=== PATIENT | female | born 1965 | race Caucasian/White ===

== ENCOUNTER 2017-06-01 10:35 | Emergency (ER) | payer SELFPAY ==
--- NOTE | 2017-06-01 11:06 | EDM.PDOC ---
[id number] Chief Complaint: Neck Problem Stated Complaint: NECK HURTS Time Seen by Provider: 06/01/17 10:38 - Related Data Allergies Allergy/AdvReac Type Severity Reaction Status Date / Time Penicillins Allergy Swelling Verified 12/30/15 10:55 Home Meds: Home Meds . [No Known Home Meds] 12/30/15 [History] Course - Vital Signs Last Recorded V/S: Last Vital Signs Temp 35.8 C 06/01/17 10:48 Pulse 106 H 06/01/17 10:48 Resp 18 06/01/17 10:48 BP 196/115 H 06/01/17 10:48 Pulse Ox 98 06/01/17 10:48 - Orders/Labs/Meds Orders: Active Orders 24 hr Category Date Time Status Cervical Spine Comp w wo Cont [MR] Stat Exams 06/01/17 11:16 Taken Labs: Laboratory Tests 06/01/17 Range/Units 11:20 Sodium 136 (136-146) mmol/L Potassium 3.9 (3.5-5.1) mmol/L Chloride 106 (98-110) mmol/L Carbon Dioxide 17 L (21-31) mmol/L BUN 14 (6.0-23.0) mg/dL Creatinine 0.8 (0.6-1.5) mg/dL Est Cr Clr Drug Dosing 59.76 mL/min Estimated GFR (MDRD) > 60.0 ml/min Glucose 120 H (60-110) mg/dL Calcium 10.0 (8.8-10.8) mg/dL Meds: Medications Discontinued Medications Generic Name Dose Route Start Last Admin Trade Name Ricoq PRN Reason Stop Dose Admin Lorazepam 1 mg 06/01/17 11:40 06/01/17 11:45 Ativan IVPUSH 06/01/17 11:41 1 mg ONETIME ONE Administration Departure - Departure Disposition: Home, Self-Care 01 Clinical Impression: Cervical spine pain, Cervical neuropathy - Discharge Information Instructions: Cervical Radiculopathy, [id number] Referrals: PCP,None [Primary Care Provider] - Fany Solano MD [Physician] - Forms: ED Department Discharge Additional Instructions: The following information is given to patients seen in the emergency department who are being discharged to home. This information is to outline your options for follow-up care. We provide all patients seen in our emergency department with a follow-up referral. The need for follow-up, as well as the timing and circumstances, are variable depending upon the specifics of your emergency department visit. If you don't have a primary care physician on staff, we will provide you with a referral. We always advise you to contact your personal physician following an emergency department visit to inform them of the circumstance of the visit and for follow-up with them and/or the need for any referrals to a consulting specialist. The emergency department will also refer you to a specialist when appropriate. This referral assures that you have the opportunity for follow-up care with a specialist. All of these measure are taken in an effort to provide you with optimal care, which includes your follow-up. Under all circumstances we always encourage you to contact your private physician who remains a resource for coordinating your care. When calling for follow-up care, please make the office aware that this follow-up is from your recent emergency room visit. If for any reason you are refused follow-up, please contact the [facility] Emergency Department at and asked to speak to the emergency department charge nurse. Follow up on MRI results as necessary with a primary care provider. Please follow-up with your primary care provider. Please take the prescription prescribed as is. Please return to seek further medical attention if you have worsening neck and back pain. - My Orders Last 24 Hours: My Active Orders 06/01/17 11:16 Cervical Spine Comp w wo Cont [MR] Stat - Assessment/Plan Last 24 Hours: My Active Orders 06/01/17 11:16 Cervical Spine Comp w wo Cont [MR] Stat <Tyler Self - Last Filed: 06/01/17 13:52> ED HPI GENERAL MEDICAL PROBLEM - History of Present Illness INITIAL COMMENTS - FREE TEXT/NARRATIVE: HISTORY AND PHYSICAL: History of present illness: As a 51-year-old female presenting to the emergency department with a chief complaint of ongoing neck pain. Patient tells me that she came to the ER this past December for the same reason. She tells me that point she was scheduled for a MRI which was canceled. She tells me that she has not followed up with another physician since then. She tells me that her neck pain has gotten worse over the last 3 days. She describes it as being neck stiffness in the back of her neck along with numbness and complete inability to move her left hand thumb. She tells me that any sort of moving for that thumb causes a lot of pain. She tells me that she's been using aspirin for pain control. She denies any other numbness or tingling denies any chest pain shortness of breath. Denies any fevers or chills. Denies any bowel or bladder issues. Review of systems: As per history of present illness and below otherwise all systems reviewed and negative. Past medical history: As per history of present illness and as reviewed below otherwise noncontributory. Surgical history: As per history of present illness and as reviewed below otherwise noncontributory. Social history: No reported history of drug or alcohol abuse. Family history: As per history of present illness and as reviewed below otherwise noncontributory. Physical exam: HEENT: Atraumatic, normocephalic, pupils reactive, negative for conjunctival pallor or scleral icterus, mucous membranes moist, throat clear, neck supple, nontender, trachea midline. Lungs: Clear to auscultation, breath sounds equal bilaterally, chest nontender. Heart: S1S2, regular, negative for clicks, rubs, or JVD. Abdomen: Soft, nondistended, nontender. Negative for masses or hepatosplenomegaly. Negative for costovertebral tenderness. Pelvis: Stable nontender. Genitourinary: Deferred. Rectal: Deferred. Extremities: Atraumatic, negative for cords or calf pain. Inability for any opposition of the left thumb. Manual manuevering of the thumb causes significant pain. No erythema/induration around the thumb. No difficulty with ROM in other hand/wrists bilaterally or other digits of left hand. Neuro: Awake, alert, oriented. Cranial nerves II through XII unremarkable. Cerebellum unremarkable. Motor and sensory unremarkable throughout. Exam nonfocal. Diagnostics: MRI with and without contrast of the cervical spine BMP Therapeutics: None Impression: Plan: Neck Pain Score (Numeric/FACES): 10 Past Medical History HEENT History: Reports: None Cardiovascular History: Reports: None Respiratory History: Reports: None Gastrointestinal History: Reports: None CANCELLATION CLERK History: Reports: None Musculoskeletal History: Reports: None Neurological History: Reports: None Endocrine/Metabolic History: Reports: None Hematologic History: Reports: None Immunologic History: Reports: None Oncologic (Cancer) History: Reports: None Dermatologic History: Reports: None - Infectious Disease History Infectious Disease History: Reports: None - Past Surgical History Head Surgeries/Procedures: Reports: None Female Surgical History: Reports: Hysterectomy Endocrine Surgical History: Reports: None Musculoskeletal Surgical History: Reports: None Oncologic Surgical History: Reports: None Social & Family History - Tobacco Use Smoking Status *Q: Current Every Day Smoker Years of Tobacco use: 30 Packs/Tins Daily: 0.5 Used Tobacco, but Quit: No Second Hand Smoke Exposure: No - Caffeine Use Caffeine Use: Reports: Coffee - Recreational Drug Use Recreational Drug Use: No ED ROS GENERAL - Review of Systems Review Of Systems: See Below (See dictation) ED EXAM, UPPER BACK/NECK PAIN - Physical Exam Exam: See Below (See dictation) Course - Vital Signs Text/Narrative:: This is a 51-year-old female who presented with a chief complaint of neck pain. As per the patient and the EMR record, indicates that this neck pain has been going on since this past December. It appears that the symptoms have been consistent with how it been since December. An MRI of the cervical spine was ordered. - Orders/Labs/Meds Orders: Active Orders 24 hr Category Date Time Status Cervical Spine Comp w wo Cont [MR] Stat Exams 06/01/17 11:16 Taken Labs: Laboratory Tests 06/01/17 Range/Units 11:20 Sodium 136 (136-146) mmol/L Potassium 3.9 (3.5-5.1) mmol/L Chloride 106 (98-110) mmol/L Carbon Dioxide 17 L (21-31) mmol/L BUN 14 (6.0-23.0) mg/dL Creatinine 0.8 (0.6-1.5) mg/dL Est Cr Clr Drug Dosing 59.76 mL/min Estimated GFR (MDRD) > 60.0 ml/min Glucose 120 H (60-110) mg/dL Calcium 10.0 (8.8-10.8) mg/dL Meds: Medications Discontinued Medications Generic Name Dose Route Start Last Admin Trade Name Freq PRN Reason Stop Dose Admin Lorazepam 1 mg 06/01/17 11:40 06/01/17 11:45 Ativan IVPUSH 06/01/17 11:41 1 mg ONETIME ONE Administration Departure - Departure Time of Disposition: 11:12 Condition: Good - My Orders Last 24 Hours: My Active Orders 06/01/17 11:16 Cervical Spine Comp w wo Cont [MR] Stat - Assessment/Plan Last 24 Hours: My Active Orders 06/01/17 11:16 Cervical Spine Comp w wo Cont [MR] Stat
[2017-06-01] MEDS ORDERED: LORazepam 2 MG/ML MDV IVPUSH ONE (11:40)
[2017-06-01 11:56] LABS: CHLORIDE,CL 106 mmol/L (98-110); SODIUM,NA 136 mmol/L (136-146)
[2017-06-01 13:56] VITALS: BP 140/66
--- NOTE | 2017-06-01 15:53 | MR ---
EXAM DATE: 06/01/17 PATIENT'S AGE: 51 Patient: ROBERTO SPEARS Facility: [place], [place] Site . Site : [id number] Study: MRI Spine Cervical [id number] 12:45:47 PM Ordering Physician: Aramis Scott Final Report: INDICATION: 51-year-old female with back pain. Left C6 radiculopathy. TECHNIQUE: Sagittal and axial T1 weighted images are acquired with without gadolinium contrast, sagittal axial T2 and sagittal STIR images. FINDINGS: A mild convex right cervical thoracic curve. Sagittal alignment within normal limits. The lower brainstem the cervical and upper thoracic spinal cord appear intrinsically normal. There is no evidence of enhancing intradural or extradural lesions. No stenosis removal, C1 or C2 levels. At C2-3 no disc herniation or stenosis. At C3-4 no disc herniation central or lateral stenosis At C4-5 minor central disc bulge without stenosis the spinal canal or neural foramen. At C5-6 left paracentral disc protrusion contacts but does not compress the adjacent spinal cord. No significant neural foraminal narrowing. At C6-7 a shallow central and caudal disc extrusion extends below the disk space causing ventral thecal sac deformity without spinal cord compression. The neural foramen are adequately patent. At the C7-T1 level no disc herniation central or lateral stenosis. IMPRESSION: 1. At C5-6, a shallow left paracentral disc protrusion contacts but does not compress the spinal cord and no significant neural foraminal narrowing. 2. At C6-7 small midline caudal disc extrusion without spinal cord impingement or neural foraminal narrowing. Dictated by Zane Whitaker MD @ 06/01/2017 12:59:27 PM Dictated by: Zane Whitaker MD @ 06/01/2017 12:59:46 (Electronic Signature) Report Signed by Proxy. STACY
== END 2017-06-01 13:57 | disposition home or self-care (01) ==
LOC: MW.ED 10:35
DX: G62.9 Polyneuropathy, unspecified (principal); M54.2 Cervicalgia; F17.210 Nicotine dependence, cigarettes, uncomplicated; Z88.0 Allergy status to penicillin; Z90.710 Acquired absence of both cervix and uterus
CPT/HCPCS: 36415; 72156; 80048; 96374; 99284; J2060; 99283